=== PATIENT | female | born 1940 | race Hispanic/Latino ===

== ENCOUNTER 2017-09-17 16:01 | Emergency (ER) | payer SELFPAY ==
[~2017-09-17] VITALS: Ht 152.4 cm; Wt 83.9 kg
[~2017-09-17 16:01] MED LIST: ASPIR 8181 MG PO; BEZAFIBRATO PO; CAPTOPRIL25 MG PO; FUROSEMIDE40 MG PO
== END 2017-09-17 17:05 | disposition home or self-care (01) ==
LOC: ER 16:01
DX: R53.83 Other fatigue (principal); R51 Headache; F43.29 Adjustment disorder with other symptoms
CPT/HCPCS: 93005; 99282

== ENCOUNTER 2022-10-24 10:53 | Emergency (ER) | payer SELFPAY ==
[~2022-10-24] VITALS: Ht 121.9 cm; Wt 77.1 kg
[2022-10-24] MEDS ORDERED: MEDROL4 M2 PO (13:48)
[2022-10-24] MEDS ORDERED: ANAPROX DS550 MG PO (13:48)
[2022-10-24] MEDS ORDERED: METHOCARBAMOL750 MG PO (13:48)
[2022-10-24 13:55] VITALS: O2SAT 100
[2022-10-24 13:57] VITALS: BP 129/87; PULSE 88; RESP 18; TEMP 98.8
== END 2022-10-24 13:58 | disposition home or self-care (01) ==
LOC: ER 10:59
DX: M54.31 Sciatica, right side (principal); I10 Essential (primary) hypertension; E78.5 Hyperlipidemia, unspecified; N28.9 Disorder of kidney and ureter, unspecified; E78.00 Pure hypercholesterolemia, unspecified
CPT/HCPCS: 72110

== ENCOUNTER 2022-12-02 21:39 | Observation (INO) | payer SELFPAY ==
[~2022-12-02] VITALS: Ht 134.6 cm; Wt 82.1 kg
[~2022-12-02 21:39] MED LIST changes: +ANAPROX DS550 MG PO; +MEDROL4 M2 PO; +METHOCARBAMOL750 MG PO
[2022-12-02] MEDS ORDERED: ACETAMINOPHEN 325 MG TAB PO ONE (22:30)
[2022-12-02] MEDS ORDERED: SODIUM CHLORIDE 0.9% 1000ML 1,000 ML IV ONE (22:30)
[2022-12-02 22:38] LABS: BASOPHILS % 0.3 % (0.0-1.0); EOSINOPHILS % 0.3 % (0.0-6.0); HEMATOCRIT 40.3 % (34.2-44.1); HEMOGLOBIN 13.3 g/dL (12.0-16.0); LYMPHOCYTES # (AUTO) 1.8 (1.0-3.2); MEAN CORPUSCULAR HEMOGLOBIN 28.6 pg (28-32); MEAN CORPUSCULAR VOLUME 86.7 fL (81-99); MONOCYTES % 8.7 % (4.4-11.3); NEUTROPHILS # (AUTO) 8.8 (2.1-6.9); NEUTROPHILS % 73.3 % (38.7-80.0); PLATELET COUNT 338 x10e3/uL (140-360); RED BLOOD COUNT 4.65 x10e6/uL (3.6-5.1); RED CELL DISTRIBUTION WIDTH 15.4 % (11.7-14.4)
[2022-12-02 22:56] LABS: ALBUMIN 3.5 g/dL (3.5-5.0); ALBUMIN/GLOBULIN RATIO 1.1 (0.8-2.0); ANION GAP 19.7 mmol/L (8-16); CALCIUM 8.6 mg/dL (8.4-10.2); CREATININE, SERUM 1.62 mg/dL (0.57-1.11); POTASSIUM 4.7 mmol/L (3.5-5.1)
[2022-12-02 23:30] LABS: CLARITY,URINE CLOUDY (CLEAR); COLOR,URINE YELLOW (YELLOW)
[2022-12-02 23:31] LABS: KETONES,URINE NEGATIVE (NEGATIVE); LEUKOCYTE ESTERASE ,URINE 1+ (NEGATIVE); NITRITE,URINE NEGATIVE (NEGATIVE); PROTEIN,URINE DIPSTICK NEGATIVE (NEGATIVE); URINE UROBILINOGEN 0.2 mg/dL (0.2 - 1)
[2022-12-02 23:45] LABS: BACTERIA,URINE MODERATE /HPF; EPITHELIAL CELLS,URINE MANY /LPF; TRANSITIONAL EPI CELLS,URINE FEW; WBC,URINE (MAN) 21-50 /HPF (0-5)
[2022-12-02 23:46] LABS: RENAL EPITHELIAL CELLS,URINE MODERATE
[2022-12-03] VITALS (11 sets, daily range): BP systolic 104–148; BP diastolic 63–82; PULSE 74–84; RESP 16–20; TEMP 98–98.5; O2SAT 93–98
[2022-12-03] MEDS ORDERED: ACETAMINOPHEN 325 MG TAB PO PRN (00:15)
[2022-12-03] MEDS ORDERED: DOCUSATE SODIUM 100 MG CAP PO PRN (00:30)
[2022-12-03] MEDS ORDERED: DIPHENHYDRAMINE HCL 25 MG CAP PO PRN (00:30)
[2022-12-03] MEDS ORDERED: BENZONATATE 100 MG CAP PO PRN (00:30)
[2022-12-03] MEDS ORDERED: MELATONIN 5 MG TABLET PO PRN (00:30)
[2022-12-03] MEDS ORDERED: ALBUTEROL/IPRATROPIUM 3 ML NEB NEB PRN (00:30)
[2022-12-03] MEDS ORDERED: ONDANSETRON HCL INJ 2MG/ML 2ML 2 MG/ML VIAL IV PRN (00:30)
[2022-12-03] MEDS ORDERED: TRAMADOL HCL 50 MG TAB PO ONE (00:30)
[2022-12-03] MEDS ORDERED: POTASSIUM CHLORIDE 20 MEQ TAB CR PO PRN (00:30)
[2022-12-03] MEDS ORDERED: LIDOCAINE 4% PATCH TP PRN (00:30)
[2022-12-03] MEDS ORDERED: SIMETHICONE 80 MG CHEW PO PRN (00:30)
[2022-12-03] MEDS ORDERED: DEXTROSE 50% SYRINGE 50 ML IV PRN (00:30)
[2022-12-03] MEDS ORDERED: HYDRALAZINE HCL 20 MG/ML VIAL IV PRN (00:30)
[2022-12-03] MEDS: SODIUM CHLORIDE 0.9% 1000ML 1,000 ML IV SCH ×2 (00:33→11:08)
[2022-12-03] MEDS: ACETAMINOPHEN 325 MG TAB PO PRN (11:02)
[2022-12-03] MEDS: PANTOPRAZOLE SOD 40 MG TABEC PO SCH (11:08)
[2022-12-03] MEDS ORDERED: AMLODIPINE BESYL5 MG PO (11:16)
[2022-12-03 14:44] LABS: CREATINE KINASE 57 IU/L (29-168)
[2022-12-03] MEDS ORDERED: IBUPROFEN 400 MG TAB PO ONE (15:45)
[2022-12-03] MEDS ORDERED: IBUPROFEN 200 MG TAB PO ONE (15:45)
[2022-12-03 15:59] LABS: ANION GAP 15.1 mmol/L (8-16); CALCIUM 7.8 mg/dL (8.4-10.2); CREATININE, SERUM 1.1 mg/dL (0.57-1.11); POTASSIUM 4.1 mmol/L (3.5-5.1)
[2022-12-03] MEDS: ENOXAPARIN 30 MG/0.3 ML SYR SC SCH (16:59)
[2022-12-03] MEDS ORDERED: ENOXAPARIN SOD INJ 40 MG/0.4 ML SYR SC SCH (17:00)
[2022-12-03] MEDS ORDERED: KETOROLAC TROMETHAMINE 30 MG/ML VIAL IV PRN (17:00)
[2022-12-03] MEDS: KETOROLAC TROMETHAMINE 30 MG/ML VIAL IV SCH (22:21)
[2022-12-04] VITALS (7 sets, daily range): BP systolic 117–141; BP diastolic 56–86; PULSE 71–98; RESP 15–19; TEMP 97.9–98.1; O2SAT 95–98
[2022-12-04] MEDS: ACETAMINOPHEN 325 MG TAB PO PRN ×2 (03:39→09:22)
[2022-12-04] MEDS: KETOROLAC TROMETHAMINE 30 MG/ML VIAL IV SCH ×2 (05:55→14:01)
[2022-12-04 06:58] LABS: BASOPHILS # (AUTO) 0.1 (0.0-0.1); BASOPHILS % 0.9 % (0.0-1.0); EOSINOPHILS # (AUTO) 0.1 (0.0-0.4); EOSINOPHILS % 1.7 % (0.0-6.0); HEMATOCRIT 36.4 % (34.2-44.1); HEMOGLOBIN 11.2 g/dL (12.0-16.0); LYMPHOCYTES # (AUTO) 1.4 (1.0-3.2); LYMPHOCYTES % 20.6 % (18.0-39.1); MEAN CORPUSCULAR HEMOGLOBIN 28.1 pg (28-32); MEAN CORPUSCULAR HGB CONC 30.8 g/dL (31-35); MEAN CORPUSCULAR VOLUME 91.2 fL (81-99); MONOCYTES # (AUTO) 0.8 (0.2-0.8); MONOCYTES % 11.1 % (4.4-11.3); NEUTROPHILS # (AUTO) 4.4 (2.1-6.9); NEUTROPHILS % 63.8 % (38.7-80.0); PLATELET COUNT 279 x10e3/uL (140-360); RED BLOOD COUNT 3.99 x10e6/uL (3.6-5.1); RED CELL DISTRIBUTION WIDTH 15.3 % (11.7-14.4)
[2022-12-04 07:49] LABS: ALBUMIN 2.7 g/dL (3.5-5.0); ALBUMIN/GLOBULIN RATIO 1.1 (0.8-2.0); ANION GAP 12.1 mmol/L (8-16); CALCIUM 8.1 mg/dL (8.4-10.2); CREATININE, SERUM 1.02 mg/dL (0.57-1.11); POTASSIUM 4.1 mmol/L (3.5-5.1)
[2022-12-04] MEDS: PANTOPRAZOLE SOD 40 MG TABEC PO SCH (09:21)
[2022-12-04 13:25] LABS: ANION GAP 13.2 mmol/L (8-16); CALCIUM 8.3 mg/dL (8.4-10.2); CREATININE, SERUM 1.11 mg/dL (0.57-1.11); POTASSIUM 4.2 mmol/L (3.5-5.1)
[2022-12-04] MEDS ORDERED: PREDNISONE 20 MG TAB PO ONE (16:15)
[2022-12-04] MEDS: ENOXAPARIN 30 MG/0.3 ML SYR SC SCH (16:49)
== END 2022-12-04 19:43 | disposition home or self-care (01) ==
LOC: ER 21:45 → ERHOLD 12-03 00:07 → MED/SURG2 12-03 01:24
PROVIDERS: ADMIT Internal Medicine; ATTEND Internal Medicine
DX: N39.0 Urinary tract infection, site not specified (principal); M25.512 Pain in left shoulder; M19.012 Primary osteoarthritis, left shoulder; E66.01 Morbid (severe) obesity due to excess calories; Z68.42 Body mass index [BMI] 45.0-49.9, adult; E78.5 Hyperlipidemia, unspecified; I12.9 Hypertensive chronic kidney disease with stage 1 through stage 4 chronic kidney disease, or unspecified chronic kidney disease; N18.9 Chronic kidney disease, unspecified
CPT/HCPCS: 36415 ×3; 71045; 73030; 80048 ×2; 80053 ×2; 81001; 82550 ×2; 83605 ×2; 84484 ×3; 85025 ×2; 87040; 87086; 93005; 97116; 97162; 99284; G0378 ×2; J0696 ×2; J1650 ×2; J1885 ×2; J7030 ×2; J7512; S0164 ×2; U0002